=== PATIENT | female | born 1940 | race Two or more races ===

== ENCOUNTER 2017-06-23 11:14 | Outpatient (CLI) | payer OTHER | END 2017-06-23 11:21 | disposition home or self-care (01) | LOC: LAB 11:14 | DX: Z86.010 Personal history of colon polyps (principal) ==

== ENCOUNTER 2022-02-22 07:18 | Outpatient (CLI) | payer OTHER | END 2022-02-22 07:21 | disposition home or self-care (01) | LOC: NUCLEAR 07:18 | PROVIDERS: ATTEND Internal Medicine Cardiovascular Disease | DX: I10 Essential (primary) hypertension (principal) | CPT/HCPCS: 78452; 93017; A9500; J1250 ==

== ENCOUNTER 2022-10-20 06:00 | Day surgery (SDC) | payer OTHER | END 2022-10-20 11:20 | disposition home or self-care (01) | LOC: AMB-ENDOS 06:00 | PROVIDERS: ATTEND Internal Medicine Gastroenterology | DX: K63.5 Polyp of colon (principal); R19.5 Other fecal abnormalities; R19.7 Diarrhea, unspecified; Z20.822 Contact with and (suspected) exposure to COVID-19; K64.8 Other hemorrhoids; Z88.0 Allergy status to penicillin ==

== ENCOUNTER 2023-12-13 13:09 | Inpatient (IN) | payer OTHER ==
[~2023-12-13] VITALS: Ht 152.4 cm; Wt 99.8 kg
[2023-12-13] MEDS ORDERED: LEVOTHYROXINE100 MCG PO (13:23)
[2023-12-13] MEDS ORDERED: DOXAZOSIN MESYLA4 MG PO (13:23)
[2023-12-13] MEDS ORDERED: RESTORIL30 MG PO (13:23)
[2023-12-13] MEDS ORDERED: CANDESARTAN CIL32 MG PO (13:23)
[2023-12-13] MEDS ORDERED: PANTOPRAZOLE SO40 MG PO (13:24)
[2023-12-13] MEDS ORDERED: HYDROXYCHLOROQ200 MG PO (13:24)
[2023-12-13] MEDS ORDERED: METOPROLOL SUC200 MG PO (13:24)
[2023-12-13] MEDS ORDERED: PREVALITE PACKET4 GM PO (13:25)
[2023-12-13] MEDS ORDERED: levoFLOXacin IN DEXTROSE 5 % 500MG/100ML PIGGYBAG IV STA (14:02)
[2023-12-13] MEDS ORDERED: LEVALBUTEROL HCL 1.25 MG/3 ML SOLUTION IH SCH (14:05)
[2023-12-13] MEDS ORDERED: METHYLPREDNISOLONE SOD SUCC 125 MG VIAL IV STA (14:05)
[2023-12-13] MEDS ORDERED: HYDROCODONE/CHLORPHEN P-STIREX 5 ML ML PO STA (14:13)
[2023-12-13] MEDS ORDERED: MAGNESIUM SULFATE IN WATER 50 ML IV NR (14:15)
[2023-12-13] MEDS ORDERED: MAGNESIUM SULFATE 50% 1,000 MG/2 ML VIAL ONE (14:20)
[2023-12-13] MEDS ORDERED: levoFLOXacin IN DEXTROSE 5 % 500MG/100ML PIGGYBAG IV ONE (14:20)
[2023-12-13] MEDS ORDERED: METHYLPREDNISOLONE SOD SUCC 125 MG VIAL ONE (14:20)
[2023-12-13 15:20] LABS: HEMATOCRIT 31.8 % (36.0-45.00); HEMOGLOBIN 10.5 g/dL (12.0-15.00); MEAN CELL VOLUME 90.2 fL (80.00-100.00); MEAN CORPUSCULAR HEMOGLOBIN 29.8 pg (27.00-32.0); MEAN CORPUSCULAR HGB CONC 33.1 g/dl (32.0-36.0); PLATELET COUNT 210 K/uL (150-450); RED BLOOD COUNT 3.52 M/uL (4.00-6.00)
[2023-12-13 15:55] LABS: ALBUMIN 2.7 gm/dL (3.4-5.0); ALKALINE PHOSPHATASE 54 U/L (50-136); ALT/SGPT 12 U/L (12-78); ANION GAP 9 (10.0-20.0); AST/SGOT 6 U/L (15-37); BILIRUBIN TOTAL 0.23 mg/dL (0.3-1.2); BILIRUBIN,CONJUGATED < 0.10 mg/dL (0.0-0.2); BILIRUBIN,UNCONJUGATED 0.13 mg/dL (0.0-0.6); BLOOD UREA NITROGEN 31 mg/dL (7-18); BUN CREA RATIO 22 (7.0-25.0); CALCIUM 8.8 mg/dL (8.5-10.1); CARBON DIOXIDE 27 mEq/L (21-32); CHLORIDE 115 mmol/L (98-107); CREATININE SERUM 1.38 mg/dL (0.55-1.02); GFR 36.69; GLUCOSE FASTING 90 mg/dL (65-100); OSMOLALITY SERUM 297 MOSM/KG (275-295); SODIUM 146 mmol/L (136-145); TOTAL PROTEIN 6.4 gm/dL (6.4-8.2)
[2023-12-13] MEDS ORDERED: IPRATROPIUM BROMIDE 0.5 MG/2.5 ML AMPUL.NEB IH SCH (18:08)
[2023-12-13] MEDS ORDERED: SODIUM CHLORIDE 0.45 % 1,000 ML IV SCH (18:15)
[2023-12-13] MEDS ORDERED: ONDANSETRON HCL 4 MG in 0.9 % SODIUM CHLORIDE 50 ML IV PRN (18:15)
[2023-12-13 18:32] LABS: ABG PH 7.359 (7.35-7.45); ABG PO2 73.6 mmHg (80-100); ABG pCO2 42.1 mmHg (35-45); BASE EXCESS -2.2 mmol/l; SaO2 93.8 %
[2023-12-13 18:33] LABS: BICARBONATE 23.2 mmol/l (23-25); Tco2 24.5 mmol/l
[2023-12-13 18:35] LABS: allen test SATISFACTORY; o2 21 %; puncture site RADIAL RIGHT
[2023-12-13 19:14] VITALS: BP 142/61; O2SAT 96
[2023-12-13 19:16] LABS: URINE APPEARANCE Clear; URINE BILIRRUBIN Negative (NEGATIVE); URINE BLOOD Negative; URINE COLOR Yellow; URINE GLUCOSE Negative (NEGATIVE); URINE KETONE Negative (NEGATIVE); URINE LEUKOCYTE Negative; URINE NITRATE Positive; URINE PROTEIN Negative (NEGATIVE); URINE UROBILINOGEN 0.2 E.U./dl
[2023-12-13 19:21] LABS: URINE BACTERIA 5812.3 uL (0.0-1933)
[2023-12-13 19:34] LABS: URINE CAST 0.15 uL (0.0-1.40); URINE EPITHELIAL CELLS 0.4 uL (0.0-38.8); URINE RBC 1.9 uL (0.0-20.8); URINE WBC 1.5 uL (0.0-23.2)
[2023-12-13 19:38] LABS: MAGNESIUM 1.9 mg/dL (1.8-2.4); PHOSPHOROUS 3.6 mg/dL (2.5-4.9)
[2023-12-13 19:39] LABS: INR 1.11; PARTIAL THROMBOPLASTIN TIME 29.2 SECONDS (22.0-34.0); PROTHROMBIN TIME 11.6 SECONDS (9.0-11.5)
[2023-12-13] MEDS ORDERED: LEVALBUTEROL HCL 0.63 MG/3 ML SOLUTION IH ONE ×2 (21:00→23:42)
[2023-12-13] MEDS ORDERED: TEMAZEPAM 15 MG CAPSULE PO SCH (21:00)
[2023-12-13] MEDS ORDERED: IPRATROPIUM BROMIDE 0.5 MG/2.5 ML AMPUL.NEB IH ONE ×2 (21:00→23:41)
[2023-12-14 00:14] VITALS: BP 135/79; O2SAT 97
[2023-12-14] MEDS ORDERED: DOXAZOSIN MESYLATE 4 MG TABLET PO SCH ×2 (00:17→21:00)
[2023-12-14 01:12] VITALS: BP 133/67; O2SAT 97
[2023-12-14] MEDS ORDERED: LEVOTHYROXINE SODIUM 100 MCG TABLET PO SCH (06:00)
[2023-12-14] MEDS ORDERED: CANDESARTAN CILEXETIL 32 MG TABLET PO SCH (09:00)
[2023-12-14] MEDS ORDERED: ALLOPURINOL 100 MG TABLET PO SCH (09:00)
[2023-12-14] MEDS ORDERED: levoFLOXacin IN DEXTROSE 5 % 100 ML IV SCH (09:00)
[2023-12-14] MEDS ORDERED: FAMOTIDINE/PF 20 MG in 0.9 % SODIUM CHLORIDE 8 ML IV PUSH SCH (09:00)
[2023-12-14 09:43] VITALS: BP 124/69; O2SAT 97
[2023-12-14 16:00] VITALS: BP 158/82; O2SAT 96
[2023-12-15 01:50] VITALS: BP 148/86; O2SAT 95
[2023-12-15 09:40] VITALS: BP 115/73; O2SAT 100
[2023-12-15] MEDS ORDERED: SODIUM CHLORIDE FOR INHALATION 1 VIAL.NEB IH SCH (13:35)
[2023-12-15] MEDS ORDERED: ACETYLCYSTEINE 200 MG/ML 30ML VIAL IH SCH (17:00)
[2023-12-15] MEDS ORDERED: ALBUTEROL SULFATE 3 ML/2.5 MG AMPUL.NEB IH SCH (17:00)
[2023-12-15 17:34] VITALS: BP 121/77
[2023-12-16 02:00] VITALS: BP 125/55
[2023-12-16 08:31] LABS: ALBUMIN 2.6 gm/dL (3.4-5.0); CALCIUM 8.6 mg/dL (8.5-10.1); CREATININE SERUM 1.49 mg/dL (0.55-1.02); GFR 33.59; PHOSPHOROUS 3.1 mg/dL (2.5-4.9); POTASSIUM 4.62 mEq/L (3.5-5.1)
[2023-12-16 09:13] VITALS: BP 110/63
[2023-12-16 18:01] VITALS: BP 134/63
[2023-12-17 02:39] VITALS: BP 115/69; O2SAT 96
[2023-12-17 08:26] VITALS: BP 115/44
[2023-12-17] MEDS ORDERED: FAMOTIDINE/PF 20 MG/2 ML VIAL ONE (08:39)
[2023-12-17] MEDS ORDERED: levoFLOXacin IN DEXTROSE 5 % 100 ML IV SCH (09:00)
[2023-12-17 17:57] VITALS: BP 138/52
[2023-12-17 21:59] VITALS: BP 153/67
[2023-12-18 02:43] VITALS: BP 115/63; O2SAT 95
[2023-12-18] MEDS ORDERED: FAMOTIDINE/PF 20 MG/2 ML VIAL ONE (08:21)
[2023-12-18 08:29] LABS: HEMATOCRIT 29.9 % (36.0-45.00); HEMOGLOBIN 9.9 g/dL (12.0-15.00); MEAN CELL VOLUME 91.7 fL (80.00-100.00); MEAN CORPUSCULAR HEMOGLOBIN 30.3 pg (27.00-32.0); PLATELET COUNT 151 K/uL (150-450); RED BLOOD COUNT 3.26 M/uL (4.00-6.00); RED CELL DISTRIBUTION WIDTH 16.6 % (11.5-14.5)
[2023-12-18 08:48] VITALS: BP 105/50
[2023-12-18 09:24] LABS: ALBUMIN 2.6 gm/dL (3.4-5.0); BILIRUBIN TOTAL 0.5 mg/dL (0.3-1.2); CALCIUM 8.5 mg/dL (8.5-10.1); CREATININE SERUM 1.54 mg/dL (0.55-1.02); GFR 32.33; GLOBULINA 2.7 G/DL (2.4-3.5); PHOSPHOROUS 2.8 mg/dL (2.5-4.9); POTASSIUM 4.54 mEq/L (3.5-5.1); TOTAL PROTEIN 5.3 gm/dL (6.4-8.2)
[2023-12-18 18:19] VITALS: BP 152/51
[2023-12-18] MEDS ORDERED: CLOTRIMAZOLE 10 MG TROCHE MM SCH (21:00)
[2023-12-19] MEDS ORDERED: LEVALBUTEROL HCL 1.25 MG/3 ML SOLUTION IH SCH
[2023-12-19] MEDS ORDERED: ACETYLCYSTEINE 2,000 MG/10 ML ML IH SCH
[2023-12-19 01:51] VITALS: BP 138/89
[2023-12-19 07:47] LABS: HEMATOCRIT 30.1 % (36.0-45.00); HEMOGLOBIN 9.9 g/dL (12.0-15.00); MEAN CELL VOLUME 90.1 fL (80.00-100.00); MEAN CORPUSCULAR HEMOGLOBIN 29.7 pg (27.00-32.0); MEAN CORPUSCULAR HGB CONC 32.9 g/dl (32.0-36.0); PLATELET COUNT 141 K/uL (150-450); RED BLOOD COUNT 3.34 M/uL (4.00-6.00); RED CELL DISTRIBUTION WIDTH 16.7 % (11.5-14.5)
[2023-12-19] MEDS ORDERED: ACETYLCYSTEINE 200 MG/ML 30ML VIAL IH SCH (08:00)
[2023-12-19 08:25] LABS: CALCIUM 8.3 mg/dL (8.5-10.1); CREATININE SERUM 1.62 mg/dL (0.55-1.02); GFR 30.5; POTASSIUM 4.71 mEq/L (3.5-5.1)
[2023-12-19 08:45] VITALS: BP 130/60
[2023-12-19 18:04] VITALS: BP 134/73; O2SAT 98
[2023-12-20 03:15] VITALS: BP 114/56
[2023-12-20 08:47] VITALS: BP 152/71
[2023-12-20 18:37] VITALS: BP 129/74; O2SAT 97
[2023-12-20] MEDS ORDERED: METHYLPREDNISOLONE SOD SUCC 40 MG VIAL IV SCH (21:00)
[2023-12-21 01:25] VITALS: BP 134/78
[2023-12-21 08:52] LABS: MEAN CELL VOLUME 91.7 fL (80.00-100.00); MEAN CORPUSCULAR HEMOGLOBIN 30.4 pg (27.00-32.0); MEAN CORPUSCULAR HGB CONC 33.2 g/dl (32.0-36.0); PLATELET COUNT 131 K/uL (150-450); RED BLOOD COUNT 3.28 M/uL (4.00-6.00); RED CELL DISTRIBUTION WIDTH 17.6 % (11.5-14.5)
[2023-12-21 09:10] VITALS: BP 135/72
[2023-12-21 09:46] LABS: CALCIUM 8.5 mg/dL (8.5-10.1); CREATININE SERUM 1.53 mg/dL (0.55-1.02); GFR 32.57; POTASSIUM 5.87 mEq/L (3.5-5.1)
[2023-12-21] MEDS ORDERED: SODIUM POLYSTYRENE SULFONATE 15 G/4 TSP TSP PO SCH (17:00)
[2023-12-21 17:55] VITALS: BP 136/69; O2SAT 98
[2023-12-21] MEDS ORDERED: TEMAZEPAM 15 MG CAPSULE PO SCH (21:00)
[2023-12-22 01:42] VITALS: BP 107/67
[2023-12-22 08:57] VITALS: BP 129/77
[2023-12-22] MEDS ORDERED: levoFLOXacin 750 MG TABLET PO SCH (11:00)
[2023-12-22] MEDS ORDERED: hydrALAZINE HCL 20 MG VIAL IV PRN (11:45)
[2023-12-22] MEDS ORDERED: LEVALBUTEROL HCL 1.25 MG/3 ML SOLUTION IH SCH (12:00)
[2023-12-22] MEDS ORDERED: METHYLPREDNISOLONE SOD SUCC 40 MG VIAL IV SCH (13:00)
[2023-12-22] MEDS ORDERED: METROnidazole 500 MG TABLET PO SCH (13:00)
[2023-12-22] MEDS ORDERED: AMLODIPINE BESYLATE 5 MG TABLET PO SCH (17:00)
[2023-12-22] MEDS ORDERED: DOXAZOSIN MESYLATE 4 MG TABLET PO SCH (17:00)
[2023-12-22 17:34] VITALS: BP 114/67; O2SAT 97
[2023-12-23 02:47] VITALS: BP 109/64; O2SAT 93
[2023-12-23 07:59] LABS: CREATININE SERUM 1.46 mg/dL (0.55-1.02); GFR 34.38; POTASSIUM 5.07 mEq/L (3.5-5.1)
[2023-12-23 09:15] VITALS: BP 126/74
[2023-12-23] MEDS ORDERED: DEXTROSE 5 %-0.45 % SOD CHLORD 1,000 ML IV SCH (11:30)
[2023-12-23 17:39] VITALS: BP 159/61
[2023-12-24 02:57] VITALS: BP 121/69; O2SAT 93
[2023-12-24] MEDS ORDERED: ENOXAPARIN SODIUM 40 MG/0.4 ML SYRINGE SUBCUTANEO SCH (09:00)
[2023-12-24 09:12] VITALS: BP 131/57; O2SAT 100
[2023-12-24 09:18] LABS: ALBUMIN 2.6 gm/dL (3.4-5.0); BILIRUBIN TOTAL 0.27 mg/dL (0.3-1.2); CALCIUM 7.8 mg/dL (8.5-10.1); CREATININE SERUM 1.35 mg/dL (0.55-1.02); GFR 37.64; GLOBULINA 2.4 G/DL (2.4-3.5); POTASSIUM 4.28 mEq/L (3.5-5.1)
[2023-12-24] MEDS ORDERED: MAGNESIUM SULFATE IN WATER 2 GM/50 ML PIGGYBAG IV NR (10:30)
[2023-12-24] MEDS ORDERED: POTASSIUM PHOS,M-BASIC-D-BASIC 3 MM/ML VIAL IV ONE (12:00)
[2023-12-24 17:35] VITALS: BP 121/57
[2023-12-24] MEDS ORDERED: KETOROLAC TROMETHAMINE 30 MG VIAL IM ONE (18:15)
[2023-12-25 02:54] VITALS: BP 114/69; O2SAT 95
[2023-12-25 08:57] LABS: ALBUMIN 2.8 gm/dL (3.4-5.0); BILIRUBIN TOTAL 0.31 mg/dL (0.3-1.2); CALCIUM 8.1 mg/dL (8.5-10.1); CREATININE SERUM 1.62 mg/dL (0.55-1.02); GFR 30.5; GLOBULINA 2.5 G/DL (2.4-3.5); MAGNESIUM 1.6 mg/dL (1.8-2.4); PHOSPHOROUS 3.1 mg/dL (2.5-4.9); POTASSIUM 4.52 mEq/L (3.5-5.1); TOTAL PROTEIN 5.3 gm/dL (6.4-8.2)
[2023-12-25 09:45] VITALS: BP 107/64; O2SAT 98
[2023-12-25 17:19] VITALS: BP 115/50
[2023-12-26] VITALS: BP 116/65
[2023-12-26 09:28] VITALS: BP 103/62; O2SAT 97
[2023-12-26 16:00] VITALS: BP 128/71; O2SAT 99
[2023-12-27 03:07] VITALS: BP 113/62; O2SAT 96
[2023-12-27 09:22] VITALS: BP 115/74; O2SAT 96
[2023-12-27] MEDS ORDERED: TRAMADOL HCL 50 MG TABLET PO SCH (12:06)
[2023-12-27] MEDS ORDERED: FUROsemide 20 MG/2 ML VIAL IV SCH (13:30)
[2023-12-27] MEDS ORDERED: ACETAMINOPHEN 500 MG GEL..CAP PO PRN (19:30)
[2023-12-27 19:33] VITALS: BP 100/36
[2023-12-28] MEDS ORDERED: MEROPENEM 500 MG/VIAL VIAL IV SCH (02:15)
[2023-12-28 03:06] VITALS: BP 123/50
[2023-12-28 10:03] VITALS: BP 123/50
[2023-12-28 10:19] LABS: ALBUMIN 2.4 gm/dL (3.4-5.0); BILIRUBIN TOTAL 0.39 mg/dL (0.3-1.2); CALCIUM 8.2 mg/dL (8.5-10.1); CREATININE SERUM 1.69 mg/dL (0.55-1.02); GFR 29.04; POTASSIUM 4.7 mEq/L (3.5-5.1); TOTAL PROTEIN 4.4 gm/dL (6.4-8.2)
[2023-12-28] MEDS ORDERED: LIDOCAINE HCL 4% Topic SOLUTION TOP ONE (12:15)
[2023-12-28] MEDS ORDERED: LIDOCAINE HCL 2% JELLY 6 ML SYRINGE MM ONE (12:15)
[2023-12-28] MEDS ORDERED: SUGAMMADEX SODIUM 200 MG/2 ML VIAL IV ONE (12:30)
[2023-12-28 14:20] VITALS: O2SAT 100
[2023-12-28 15:07] VITALS: BP 104/45; O2SAT 100
[2023-12-28] MEDS ORDERED: PANTOPRAZOLE SODIUM 40 MG/VIAL VIAL IV STA (16:23)
[2023-12-28] MEDS ORDERED: MENTHOL/CETYLPYRD CL 1 LOZENGE MM PRN (16:30)
[2023-12-28] MEDS ORDERED: FUROsemide 20 MG/2 ML VIAL IV SCH (17:00)
[2023-12-28] MEDS ORDERED: METHYLPREDNISOLONE SOD SUCC 125 MG VIAL IV SCH (17:00)
[2023-12-28] MEDS ORDERED: LEVALBUTEROL HCL 1.25 MG/3 ML SOLUTION IH SCH (18:00)
[2023-12-28 20:00] VITALS: BP 135/61; O2SAT 100
[2023-12-28] MEDS ORDERED: FAMOTIDINE/PF 20 MG in 0.9 % SODIUM CHLORIDE 100 ML IV SCH (21:00)
[2023-12-28 23:30] VITALS: BP 138/63; O2SAT 100
[2023-12-29 04:00] VITALS: BP 125/49; O2SAT 100
[2023-12-29] MEDS ORDERED: MEROPENEM 1,000 MG VIAL IV SCH ×2 (07:26→21:00)
[2023-12-29 07:36] VITALS: BP 112/50; O2SAT 99
[2023-12-29] MEDS ORDERED: ENOXAPARIN SODIUM 30 MG/0.3 ML SYRINGE SUBCUTANEO SCH (09:00)
[2023-12-29] MEDS ORDERED: PANTOPRAZOLE SODIUM 40 MG/VIAL VIAL IV SCH (09:00)
[2023-12-29 12:00] VITALS: BP 136/57; O2SAT 98
[2023-12-29] MEDS ORDERED: CHLORHEXIDINE GLUCONATE 120 ML BOTTLE TOP ONE (12:20)
[2023-12-29 15:34] VITALS: BP 131/51; O2SAT 100
[2023-12-29 18:44] VITALS: BP 149/70; O2SAT 97
[2023-12-29] MEDS ORDERED: FAMOTIDINE/PF 20 MG/2 ML VIAL ONE (20:22)
[2023-12-29 20:35] VITALS: BP 146/88
[2023-12-29] MEDS ORDERED: TEMAZEPAM 15 MG CAPSULE PO SCH (21:00)
[2023-12-30 01:09] VITALS: BP 113/60; O2SAT 95
[2023-12-30] MEDS ORDERED: LEVOTHYROXINE SODIUM 100 MCG TABLET PO SCH (06:00)
[2023-12-30 07:04] VITALS: BP 96/50; O2SAT 97
[2023-12-30 08:00] VITALS: BP 128/60
[2023-12-30 08:24] LABS: HEMATOCRIT 28.4 % (36.0-45.00); HEMOGLOBIN 9.6 g/dL (12.0-15.00); MEAN CELL VOLUME 90.2 fL (80.00-100.00); MEAN CORPUSCULAR HEMOGLOBIN 30.6 pg (27.00-32.0); MEAN CORPUSCULAR HGB CONC 33.9 g/dl (32.0-36.0); RED BLOOD COUNT 3.14 M/uL (4.00-6.00); RED CELL DISTRIBUTION WIDTH 18.4 % (11.5-14.5)
[2023-12-30 08:29] LABS: PLATELET COUNT 107 K/uL (150-450)
[2023-12-30 08:37] LABS: ALBUMIN 2.4 gm/dL (3.4-5.0); BILIRUBIN TOTAL 0.26 mg/dL (0.3-1.2); CALCIUM 7.9 mg/dL (8.5-10.1); CREATININE SERUM 1.48 mg/dL (0.55-1.02); GFR 33.85; GLOBULINA 2.2 G/DL (2.4-3.5); POTASSIUM 5.06 mEq/L (3.5-5.1); TOTAL PROTEIN 4.6 gm/dL (6.4-8.2)
[2023-12-31 01:31] VITALS: BP 133/62; O2SAT 97
[2023-12-31 05:57] VITALS: BP 136/74; O2SAT 97
[2023-12-31 08:26] VITALS: BP 146/80
[2023-12-31] MEDS ORDERED: METHYLPREDNISOLONE SOD SUCC 40 MG VIAL IV SCH (17:00)
[2023-12-31 17:55] VITALS: BP 145/72; O2SAT 97
[2024-01-01 01:35] VITALS: BP 149/64; O2SAT 96
[2024-01-01 05:58] VITALS: BP 145/67; O2SAT 97
[2024-01-01 08:48] VITALS: BP 160/75
[2024-01-01] MEDS ORDERED: FLUCONAZOLE IN NACL,ISO-OSM 200 ML IV NR (10:45)
[2024-01-01 17:48] VITALS: BP 145/62
[2024-01-01] MEDS ORDERED: FAMOtidine 20 MG TABLET PO SCH (21:00)
[2024-01-01 21:33] VITALS: BP 167/78
[2024-01-02 02:56] VITALS: BP 112/68; O2SAT 93
[2024-01-02 08:58] VITALS: BP 158/84; O2SAT 96
[2024-01-02] MEDS ORDERED: PANTOPRAZOLE SODIUM 40 MG TABLET.DR PO SCH (09:00)
[2024-01-02] MEDS ORDERED: FLUCONAZOLE IN NACL,ISO-OSM 100 ML IV SCH (09:00)
[2024-01-02 17:00] LABS: HEMATOCRIT 31.6 % (36.0-45.00); HEMOGLOBIN 10.4 g/dL (12.0-15.00); MEAN CELL VOLUME 91.6 fL (80.00-100.00); MEAN CORPUSCULAR HEMOGLOBIN 30.2 pg (27.00-32.0); RED BLOOD COUNT 3.44 M/uL (4.00-6.00); RED CELL DISTRIBUTION WIDTH 18.3 % (11.5-14.5)
[2024-01-02] MEDS ORDERED: METHYLPREDNISOLONE SOD SUCC 40 MG VIAL IV SCH (17:00)
[2024-01-02 17:03] LABS: PLATELET COUNT 94 K/uL (150-450)
[2024-01-02 17:04] LABS: PLT IN CITRATE 86 K/uL (150-450)
[2024-01-02 17:22] LABS: CALCIUM 8.3 mg/dL (8.5-10.1); CREATININE SERUM 1.07 mg/dL (0.55-1.02); GFR 49.22; MAGNESIUM 1.6 mg/dL (1.8-2.4); PHOSPHOROUS 2.1 mg/dL (2.5-4.9); POTASSIUM 4.79 mEq/L (3.5-5.1)
[2024-01-02 17:48] VITALS: BP 152/63
[2024-01-02] MEDS ORDERED: BUMETANIDE 2.5 MG/10 ML VIAL IV SCH (21:00)
[2024-01-03 01:05] VITALS: BP 131/62
[2024-01-03] MEDS ORDERED: AMINO ACIDS 1 EACH TABLET PO SCH (09:00)
[2024-01-03] MEDS ORDERED: FLUCONAZOLE 200 MG TABLET PO SCH (09:00)
[2024-01-03 09:26] VITALS: BP 150/69
[2024-01-03] MEDS ORDERED: METOPROLOL SUCCINATE 50 MG TAB.SR.24H PO SCH (17:00)
[2024-01-03] MEDS ORDERED: IPRATROPIUM BROMIDE 0.5 MG/2.5 ML AMPUL.NEB IH SCH (17:00)
[2024-01-03] MEDS ORDERED: DOXAZOSIN MESYLATE 4 MG TABLET PO SCH (17:00)
[2024-01-03] MEDS ORDERED: HYDROXYCHLOROQUINE SULFATE 200 MG TABLET PO SCH (17:00)
[2024-01-03] MEDS ORDERED: PREDNISONE 20 MG TABLET PO SCH (17:02)
[2024-01-03 17:39] VITALS: BP 149/66
[2024-01-03] MEDS ORDERED: MAGNESIUM SULFATE IN WATER 50 ML IV SCH (18:00)
[2024-01-03 18:08] LABS: ABG PH 7.427 (7.35-7.45); ABG PO2 76.8 mmHg (80-100); ABG pCO2 41.5 mmHg (35-45); BASE EXCESS 2.2 mmol/l; BICARBONATE 26.8 mmol/l (23-25); SaO2 95.6 %
[2024-01-03 18:15] LABS: allen test SATISFACTORY; o2 21 %; puncture site RADIAL LEFT
[2024-01-03] MEDS ORDERED: POTASSIUM PHOS,M-BASIC-D-BASIC 18 MM in 0.9 % SODIUM CHLORIDE 250 ML IV SCH (20:00)
[2024-01-03] MEDS ORDERED: BUDESONIDE 0.5 MG/2 ML AMPUL.NEB IH SCH (21:00)
[2024-01-03 22:16] VITALS: BP 161/67
[2024-01-04 00:57] VITALS: BP 134/58
[2024-01-04 09:11] VITALS: BP 154/62
[2024-01-04 11:13] LABS: HEMATOCRIT 32.5 % (36.0-45.00); HEMOGLOBIN 10.6 g/dL (12.0-15.00); MEAN CELL VOLUME 91.9 fL (80.00-100.00); MEAN CORPUSCULAR HEMOGLOBIN 30.1 pg (27.00-32.0); MEAN CORPUSCULAR HGB CONC 32.7 g/dl (32.0-36.0); PLATELET COUNT 99 K/uL (150-450); RED BLOOD COUNT 3.53 M/uL (4.00-6.00); RED CELL DISTRIBUTION WIDTH 18.3 % (11.5-14.5)
[2024-01-04 12:03] LABS: ALBUMIN 2.5 gm/dL (3.4-5.0); BILIRUBIN TOTAL 0.36 mg/dL (0.3-1.2); CALCIUM 8.4 mg/dL (8.5-10.1); CREATININE SERUM 1.09 mg/dL (0.55-1.02); GFR 48.17; GLOBULINA 2.1 G/DL (2.4-3.5); POTASSIUM 5.83 mEq/L (3.5-5.1); TOTAL PROTEIN 4.6 gm/dL (6.4-8.2)
[2024-01-04] MEDS ORDERED: MEROPENEM 500 MG/VIAL VIAL IV SCH (17:00)
[2024-01-04 17:27] VITALS: BP 145/67
[2024-01-05] VITALS: BP 134/77
[2024-01-05 08:56] VITALS: BP 116/61
[2024-01-05] MEDS ORDERED: SODIUM POLYSTYRENE SULFONATE 15 G/4 TSP TSP PO SCH (17:00)
[2024-01-05 17:13] VITALS: BP 125/69
[2024-01-05] MEDS ORDERED: BUMETANIDE 2.5 MG/10 ML VIAL IV SCH (21:00)
[2024-01-05] MEDS ORDERED: TEMAZEPAM 15 MG CAPSULE PO STA (22:10)
[2024-01-05] MEDS ORDERED: ACETAMINOPHEN 500 MG GEL..CAP PO PRN (22:15)
[2024-01-06 02:29] VITALS: BP 140/56
[2024-01-06 07:35] LABS: ALBUMIN 2.2 gm/dL (3.4-5.0); CALCIUM 8.2 mg/dL (8.5-10.1); CREATININE SERUM 1.22 mg/dL (0.55-1.02); GFR 42.3; PHOSPHOROUS 4.4 mg/dL (2.5-4.9)
[2024-01-06 08:00] VITALS: BP 122/67
[2024-01-06 08:51] LABS: POTASSIUM 6.32 mEq/L (3.5-5.1)
[2024-01-06] MEDS ORDERED: SODIUM POLYSTYRENE SULFONATE 15 G/4 TSP TSP PO SCH (13:00)
[2024-01-06 17:11] VITALS: BP 151/71; O2SAT 100
[2024-01-06 20:52] VITALS: BP 150/60; O2SAT 98
[2024-01-06] MEDS ORDERED: TEMAZEPAM 15 MG CAPSULE PO SCH (21:00)
[2024-01-07 02:13] VITALS: BP 106/64; O2SAT 96
[2024-01-07] MEDS ORDERED: NA PHOS,M-B/NA PHOS,DI-BA 1 BOTTLE ENEMA RECTAL NR (08:45)
[2024-01-07 08:50] LABS: CALCIUM 8.1 mg/dL (8.5-10.1); CREATININE SERUM 1.25 mg/dL (0.55-1.02); GFR 41.13; POTASSIUM 5.39 mEq/L (3.5-5.1)
[2024-01-07 08:52] VITALS: BP 135/75; O2SAT 98
[2024-01-07 18:29] VITALS: BP 130/70; O2SAT 97
[2024-01-07] MEDS ORDERED: TEMAZEPAM 15 MG CAPSULE PO SCH (21:00)
[2024-01-07 23:02] VITALS: BP 150/60; O2SAT 98
[2024-01-08] VITALS: BP 109/59; O2SAT 100
[2024-01-08 09:11] VITALS: BP 130/73
[2024-01-08 11:25] LABS: HEMATOCRIT 30.9 % (36.0-45.00); HEMOGLOBIN 10.4 g/dL (12.0-15.00); MEAN CELL VOLUME 91.6 fL (80.00-100.00); MEAN CORPUSCULAR HEMOGLOBIN 30.8 pg (27.00-32.0); MEAN CORPUSCULAR HGB CONC 33.7 g/dl (32.0-36.0); RED BLOOD COUNT 3.38 M/uL (4.00-6.00); RED CELL DISTRIBUTION WIDTH 17.9 % (11.5-14.5)
[2024-01-08 11:27] LABS: PLATELET COUNT 99 K/uL (150-450)
[2024-01-08 16:53] VITALS: BP 152/74
[2024-01-08] MEDS ORDERED: PREDNISONE 20 MG TABLET PO SCH (17:00)
[2024-01-08] MEDS ORDERED: SODIUM ZIRCONIUM CYCLOSILICATE PO SCH (17:00)
[2024-01-08 17:10] LABS: Glycopro Negative (Negative); HL Negative (Negative); la Positive (Negative); lb Negative (Negative); llb Negative (Negative)
[2024-01-09 01:39] VITALS: BP 148/71; O2SAT 98
[2024-01-09 05:14] VITALS: BP 154/63; O2SAT 97
[2024-01-09 08:20] LABS: ALBUMIN 2.2 gm/dL (3.4-5.0); BILIRUBIN TOTAL 0.39 mg/dL (0.3-1.2); CALCIUM 8.3 mg/dL (8.5-10.1); CREATININE SERUM 0.97 mg/dL (0.55-1.02); GFR 55.12; GLOBULINA 2.2 G/DL (2.4-3.5); POTASSIUM 4.13 mEq/L (3.5-5.1); TOTAL PROTEIN 4.4 gm/dL (6.4-8.2)
[2024-01-09 08:46] VITALS: BP 145/72
[2024-01-09] MEDS ORDERED: HYDROCORTISONE 2.5% 30 GM TUBE RECTAL SCH (09:00)
[2024-01-09] MEDS ORDERED: SODIUM CHLORIDE 0.45 % 1,000 ML IV SCH (15:45)
[2024-01-09] MEDS ORDERED: PREDNISONE 10 MG TABLET PO SCH (17:00)
[2024-01-09 17:14] VITALS: BP 128/71; O2SAT 97
[2024-01-09] MEDS ORDERED: MEROPENEM 500 MG/VIAL VIAL IV SCH (18:00)
[2024-01-09] MEDS ORDERED: ACETYLCYSTEINE 2,000 MG/10 ML ML PO SCH (21:00)
[2024-01-10 02:46] VITALS: BP 134/61
[2024-01-10] MEDS ORDERED: HYDROCORTISONE ACETATE 25 MG/SUPP.RECT SUPP.RECT RECTAL SCH (09:00)
[2024-01-10 09:19] VITALS: BP 147/80; O2SAT 95
[2024-01-10 18:59] VITALS: BP 166/69
[2024-01-11 02:53] VITALS: BP 120/74
[2024-01-11 09:45] VITALS: BP 150/67
[2024-01-11 18:55] VITALS: BP 120/57
[2024-01-11] MEDS ORDERED: LACTOBACILLUS ACIDOPHILUS 1 CAP CAP PO SCH (20:54)
[2024-01-11] MEDS ORDERED: LOPERAMIDE HCL 2 MG CAPSULE PO SCH (20:54)
[2024-01-11] MEDS ORDERED: TRAMADOL HCL 50 MG TABLET PO PRN (21:00)
[2024-01-12 02:08] VITALS: BP 106/54
[2024-01-12 05:48] LABS: CALCIUM 7.7 mg/dL (8.5-10.1); CREATININE SERUM 0.82 mg/dL (0.55-1.02); GFR 66.91; POTASSIUM 4.72 mEq/L (3.5-5.1)
[2024-01-12 05:52] LABS: HEMATOCRIT 26.9 % (36.0-45.00); MEAN CELL VOLUME 92.3 fL (80.00-100.00); MEAN CORPUSCULAR HGB CONC 33.4 g/dl (32.0-36.0); RED BLOOD COUNT 2.91 M/uL (4.00-6.00)
[2024-01-12 05:53] LABS: MEAN CORPUSCULAR HEMOGLOBIN 30.9 pg (27.00-32.0); PLATELET COUNT 63 K/uL (150-450)
[2024-01-12 07:59] VITALS: BP 108/59; O2SAT 96
[2024-01-12] MEDS ORDERED: PREDNISONE 20 MG TABLET PO SCH (09:00)
[2024-01-12] MEDS ORDERED: fentaNYL CITRATE 50 MCG/ML AMPUL IV PUSH NR (15:45)
[2024-01-12] MEDS ORDERED: MIDAZOLAM HCL 2 MG/2 ML VIAL IV PUSH NR (15:45)
[2024-01-12 17:47] VITALS: BP 147/80; O2SAT 100
[2024-01-12] MEDS ORDERED: KETOROLAC TROMETHAMINE 30 MG VIAL IV PRN (18:15)
[2024-01-13 01:48] VITALS: BP 166/90
[2024-01-13] MEDS ORDERED: levoFLOXacin IN DEXTROSE 5 % 5 MG/ML PIGGYBAG IV SCH (09:00)
[2024-01-13 09:58] VITALS: BP 131/62
[2024-01-13] MEDS ORDERED: SODIUM CHLORIDE 0.45 % 1,000 ML IV SCH (16:30)
[2024-01-13] MEDS ORDERED: AMINO ACIDS/PROTEIN HYDROLYS 30 ML BLIST.PACK PO SCH (17:00)
[2024-01-13] MEDS ORDERED: ENOXAPARIN SODIUM 60 MG/0.6 ML SYRINGE SUBCUTANEO SCH (17:00)
[2024-01-13 18:30] VITALS: BP 121/43
[2024-01-13 20:20] VITALS: BP 113/44
[2024-01-14 02:07] VITALS: BP 137/59; O2SAT 100
[2024-01-14 08:25] LABS: HEMATOCRIT 25.1 % (36.0-45.00); MEAN CELL VOLUME 91.6 fL (80.00-100.00); MEAN CORPUSCULAR HGB CONC 33.7 g/dl (32.0-36.0); RED BLOOD COUNT 2.74 M/uL (4.00-6.00); RED CELL DISTRIBUTION WIDTH 17.6 % (11.5-14.5)
[2024-01-14 08:38] LABS: HEMOGLOBIN 8.5 g/dL (12.0-15.00); PLATELET COUNT 70 K/uL (150-450)
[2024-01-14 08:40] LABS: CALCIUM 7.8 mg/dL (8.5-10.1); CREATININE SERUM 1.09 mg/dL (0.55-1.02); GFR 48.17; MAGNESIUM 1.5 mg/dL (1.8-2.4); PHOSPHOROUS 2.6 mg/dL (2.5-4.9); POTASSIUM 5.42 mEq/L (3.5-5.1)
[2024-01-14 09:30] VITALS: BP 166/90
[2024-01-14] MEDS ORDERED: SODIUM POLYSTYRENE SULFONATE 30G/8 TSP PO SCH (13:26)
[2024-01-14] MEDS ORDERED: MAGNESIUM SULFATE IN WATER 50 ML IV SCH (14:00)
[2024-01-14] MEDS ORDERED: SODIUM POLYSTYRENE SULFONATE 15 G/4 TSP TSP PO SCH (14:30)
[2024-01-14] MEDS ORDERED: KETOROLAC TROMETHAMINE 30 MG VIAL IV PRN (15:15)
[2024-01-14] MEDS ORDERED: MORPHINE SULFATE 2 MG/ML CARTRIDGE IV PRN (15:15)
[2024-01-14 18:22] VITALS: BP 112/68
[2024-01-15 03:26] VITALS: BP 90/56; O2SAT 96
[2024-01-15 09:23] VITALS: BP 142/60; O2SAT 98
[2024-01-15 18:02] VITALS: BP 146/70; O2SAT 100
[2024-01-15] MEDS ORDERED: HYDROCORTISONE ACETATE 25 MG/SUPP.RECT SUPP.RECT RECTAL SCH (19:11)
[2024-01-15] MEDS ORDERED: TEMAZEPAM 15 MG CAPSULE PO SCH (21:15)
[2024-01-15 22:42] VITALS: BP 151/75; O2SAT 98
[2024-01-16 02:08] VITALS: BP 126/76
[2024-01-16] MEDS ORDERED: HYDROCORTISONE 2.5% 30 GM TUBE RECTAL SCH (09:00)
[2024-01-16 09:29] VITALS: BP 137/73; O2SAT 100
[2024-01-16 18:27] VITALS: BP 139/78; O2SAT 99
[2024-01-17 02:27] VITALS: BP 125/61; O2SAT 21
[2024-01-17] MEDS ORDERED: levoFLOXacin IN DEXTROSE 5 % 5 MG/ML PIGGYBAG IV SCH (09:00)
[2024-01-17 09:17] VITALS: BP 144/67
[2024-01-17] MEDS ORDERED: TRAMADOL HCL 50 MG TABLET PO PRN (14:30)
[2024-01-17 17:01] VITALS: BP 107/48
[2024-01-17 20:32] LABS: HEMATOCRIT 25.2 % (36.0-45.00); MEAN CELL VOLUME 92.8 fL (80.00-100.00); MEAN CORPUSCULAR HGB CONC 32.7 g/dl (32.0-36.0); RED CELL DISTRIBUTION WIDTH 17.5 % (11.5-14.5)
[2024-01-17 20:36] LABS: HEMOGLOBIN 8.3 g/dL (12.0-15.00); MEAN CORPUSCULAR HEMOGLOBIN 30.5 pg (27.00-32.0); PLATELET COUNT 84 K/uL (150-450); RED BLOOD COUNT 2.72 M/uL (4.00-6.00)
[2024-01-17 20:41] LABS: INR 1.05; PARTIAL THROMBOPLASTIN TIME 28.2 SECONDS (22.0-34.0); PROTHROMBIN TIME 11.4 SECONDS (9.0-11.5)
[2024-01-17 20:50] LABS: ALBUMIN 1.7 gm/dL (3.4-5.0); BILIRUBIN TOTAL 0.31 mg/dL (0.3-1.2); CALCIUM 7.7 mg/dL (8.5-10.1); CREATININE SERUM 1.24 mg/dL (0.55-1.02); GFR 41.51; GLOBULINA 2.3 G/DL (2.4-3.5); MAGNESIUM 1.9 mg/dL (1.8-2.4); POTASSIUM 5.7 mEq/L (3.5-5.1)
[2024-01-18 02:27] VITALS: BP 108/68; O2SAT 100
[2024-01-18 08:59] VITALS: BP 93/54; O2SAT 98
[2024-01-18] MEDS ORDERED: PREDNISONE 20 MG TABLET PO SCH ×2 (09:00)
[2024-01-18 16:50] VITALS: BP 90/50; O2SAT 96
[2024-01-18] MEDS ORDERED: SODIUM POLYSTYRENE SULFONATE 15 G/4 TSP TSP PO SCH (19:19)
[2024-01-18] MEDS ORDERED: SODIUM BICARBONATE 50MEQ/50ML VIAL IV NR (19:30)
[2024-01-19 00:52] VITALS: BP 184/74; O2SAT 99
[2024-01-19 05:33] LABS: CALCIUM 7.8 mg/dL (8.5-10.1); CREATININE SERUM 1.31 mg/dL (0.55-1.02); GFR 38.97; POTASSIUM 5.81 mEq/L (3.5-5.1)
[2024-01-19 08:00] VITALS: BP 122/61; O2SAT 99
[2024-01-19] MEDS ORDERED: MIDAZOLAM HCL 2 MG/2 ML VIAL IV STA (11:33)
[2024-01-19] MEDS ORDERED: METOPROLOL SUCCINATE 25 MG TAB.SR.24H PO SCH (17:00)
[2024-01-19 17:01] VITALS: BP 121/69; O2SAT 99
[2024-01-19] MEDS ORDERED: MORPHINE SULFATE 4 MG/ML VIAL IV PRN (20:00)
[2024-01-19] MEDS ORDERED: OCTREOTIDE ACETATE 1,250 MCG in 0.9 % SODIUM CHLORIDE 250 ML IV SCH (20:00)
[2024-01-19 21:05] LABS: MEAN CELL VOLUME 93.2 fL (80.00-100.00); MEAN CORPUSCULAR HGB CONC 32.6 g/dl (32.0-36.0); RED BLOOD COUNT 2.37 M/uL (4.00-6.00); RED CELL DISTRIBUTION WIDTH 17.2 % (11.5-14.5)
[2024-01-19 21:10] LABS: HEMATOCRIT 22.1 % (36.0-45.00); HEMOGLOBIN 7.2 g/dL (12.0-15.00); MEAN CORPUSCULAR HEMOGLOBIN 30.3 pg (27.00-32.0); PLATELET COUNT 118 K/uL (150-450)
[2024-01-19] MEDS ORDERED: FUROsemide 20 MG/2 ML VIAL IV SCH (22:15)
[2024-01-20] VITALS (10 sets, daily range): BP systolic 91–122; BP diastolic 46–88; O2SAT 90–100
[2024-01-20] MEDS ORDERED: ACETAMINOPHEN 500 MG GEL..CAP PO PRN (00:30)
[2024-01-20] MEDS ORDERED: MORPHINE SULFATE 4 MG/ML CARTRIDGE IV PRN (09:00)
[2024-01-20] MEDS ORDERED: OCTREOTIDE ACETATE 5MCG/ML REDILUIDO IV SCH (12:30)
[2024-01-20 18:26] LABS: HEMATOCRIT 23.7 % (36.0-45.00); MEAN CELL VOLUME 90.2 fL (80.00-100.00); MEAN CORPUSCULAR HGB CONC 33.9 g/dl (32.0-36.0); RED BLOOD COUNT 2.63 M/uL (4.00-6.00); RED CELL DISTRIBUTION WIDTH 16.2 % (11.5-14.5)
[2024-01-20 18:30] LABS: MEAN CORPUSCULAR HEMOGLOBIN 30.4 pg (27.00-32.0)
[2024-01-20 18:31] LABS: PLATELET COUNT 119 K/uL (150-450)
[2024-01-20] MEDS ORDERED: PANTOPRAZOLE SODIUM 40 MG/VIAL VIAL IV SCH (20:00)
[2024-01-20] MEDS ORDERED: AMINOCAPROIC ACID 250 MG/ML VIAL IV STA (20:15)
[2024-01-21] MEDS ORDERED: AMINOCAPROIC ACID 250 MG/ML VIAL IV SCH (02:00)
[2024-01-21 07:29] VITALS: BP 93/61; O2SAT 100
[2024-01-21 12:00] VITALS: BP 108/60; O2SAT 100
[2024-01-21] MEDS ORDERED: 0.9 % SODIUM CHLORIDE 1,000 ML IV SCH (12:00)
[2024-01-21] MEDS ORDERED: DIBUCAINE 30 GM TUBE RECTAL SCH (13:00)
[2024-01-21 15:10] LABS: MEAN CELL VOLUME 86.6 fL (80.00-100.00); MEAN CORPUSCULAR HGB CONC 34.2 g/dl (32.0-36.0); PLATELET COUNT 130 K/uL (150-450); RED CELL DISTRIBUTION WIDTH 16.2 % (11.5-14.5)
[2024-01-21 15:15] VITALS: BP 107/56; O2SAT 100
[2024-01-21 15:15] LABS: MEAN CORPUSCULAR HEMOGLOBIN 29.6 pg (27.00-32.0)
[2024-01-21 15:17] LABS: HEMATOCRIT 22.5 % (36.0-45.00); HEMOGLOBIN 7.7 g/dL (12.0-15.00)
[2024-01-21 15:29] LABS: INR 1.08; PARTIAL THROMBOPLASTIN TIME 29.8 SECONDS (22.0-34.0); PROTHROMBIN TIME 11.7 SECONDS (9.0-11.5)
[2024-01-21 17:41] LABS: COL EPI 103 SECONDS (82-175)
[2024-01-21 20:00] VITALS: BP 83/57; O2SAT 100
[2024-01-21 23:31] VITALS: BP 106/37; O2SAT 100
[2024-01-22 03:05] LABS: INR 1.05; PARTIAL THROMBOPLASTIN TIME 28.9 SECONDS (22.0-34.0); PROTHROMBIN TIME 11.4 SECONDS (9.0-11.5)
[2024-01-22 04:00] VITALS: BP 134/41; O2SAT 95
[2024-01-22 07:02] VITALS: BP 128/45; O2SAT 100
[2024-01-22 12:00] VITALS: BP 123/48; O2SAT 100
[2024-01-22 14:20] LABS: HEMATOCRIT 24.8 % (36.0-45.00); MEAN CORPUSCULAR HGB CONC 33.6 g/dl (32.0-36.0); RED BLOOD COUNT 2.92 M/uL (4.00-6.00); RED CELL DISTRIBUTION WIDTH 16.3 % (11.5-14.5)
[2024-01-22 14:31] LABS: HEMOGLOBIN 8.3 g/dL (12.0-15.00); MEAN CORPUSCULAR HEMOGLOBIN 28.4 pg (27.00-32.0); PLATELET COUNT 102 K/uL (150-450)
[2024-01-22 14:58] VITALS: BP 118/75; O2SAT 100
[2024-01-22 20:00] VITALS: BP 152/52; O2SAT 100
[2024-01-22] MEDS ORDERED: SODIUM POLYSTYRENE SULFONATE 15 G/4 TSP TSP PO SCH (22:22)
[2024-01-22 23:06] VITALS: BP 163/70; O2SAT 100
[2024-01-23 04:00] VITALS: BP 157/56; O2SAT 100
[2024-01-23 07:38] VITALS: BP 157/86; O2SAT 100
[2024-01-23] MEDS ORDERED: OCTREOTIDE ACETATE 5MCG/ML REDILUIDO IV SCH (09:00)
[2024-01-23] MEDS ORDERED: BUPIVACAINE HCL/MPF 0.5% 30ML VIAL ONE (10:47)
[2024-01-23] MEDS ORDERED: LIDOCAINE HCL 1%/EPINEPHRINE 20ML VIAL IJ ONE (10:47)
[2024-01-23] MEDS ORDERED: POVIDONE-IODINE 118 ML BOTT TOP ONE (10:47)
[2024-01-23] MEDS ORDERED: DIBUCAINE 30 GM TUBE ONE (10:47)
[2024-01-23] MEDS ORDERED: HEMOSTATIC MATRIX 1 KIT KIT TOP ONE (10:47)
[2024-01-23 13:20] VITALS: BP 119/58; O2SAT 100
[2024-01-23 15:16] LABS: ALBUMIN 1.7 gm/dL (3.4-5.0); BILIRUBIN TOTAL 0.58 mg/dL (0.3-1.2); CALCIUM 7.6 mg/dL (8.5-10.1); CREATININE SERUM 1.52 mg/dL (0.55-1.02); GFR 32.82; GLOBULINA 2.5 G/DL (2.4-3.5); POTASSIUM 5.49 mEq/L (3.5-5.1); TOTAL PROTEIN 4.2 gm/dL (6.4-8.2)
[2024-01-23 15:53] VITALS: BP 134/51; O2SAT 100
[2024-01-23 20:20] VITALS: BP 129/53; O2SAT 97
[2024-01-23 23:02] VITALS: BP 106/52; O2SAT 99
[2024-01-24 04:00] VITALS: BP 134/56; O2SAT 100
[2024-01-24 07:00] VITALS: BP 141/57; O2SAT 98
[2024-01-24 08:42] LABS: MEAN CELL VOLUME 86.7 fL (80.00-100.00); MEAN CORPUSCULAR HGB CONC 34.3 g/dl (32.0-36.0); RED BLOOD COUNT 3.58 M/uL (4.00-6.00); RED CELL DISTRIBUTION WIDTH 17.3 % (11.5-14.5)
[2024-01-24 08:43] LABS: PLATELET COUNT 121 K/uL (150-450)
[2024-01-24 08:45] LABS: HEMOGLOBIN 10.6 g/dL (12.0-15.00); MEAN CORPUSCULAR HEMOGLOBIN 29.6 pg (27.00-32.0)
[2024-01-24] MEDS ORDERED: RINGERS SOLUTION,LACTATED 1,000 ML IV SCH (09:00)
[2024-01-24] MEDS ORDERED: PANTOPRAZOLE SODIUM 40 MG/VIAL VIAL IV PUSH SCH (09:02)
[2024-01-24] MEDS ORDERED: ALBUMIN HUMAN-25 0.25GM/ML (50ML) VIAL IV SCH ×3 (09:06→21:00)
[2024-01-24] MEDS ORDERED: TRAMADOL HCL 50 MG TABLET PO PRN (10:15)
[2024-01-24 10:32] LABS: ABG PH 7.313 (7.35-7.45); ABG PO2 90.6 mmHg (80-100); ABG pCO2 26.7 mmHg (35-45); BASE EXCESS -11.1 mmol/l; BICARBONATE 13.3 mmol/l (23-25); SaO2 95.6 %; Tco2 14.1 mmol/l
[2024-01-24 10:41] LABS: allen test SATISFACTORY; o2 32 %; puncture site RADIAL RIGHT
[2024-01-24] MEDS ORDERED: PANTOPRAZOLE SODIUM 40 MG/VIAL VIAL IV PUSH NR (10:43)
[2024-01-24] MEDS ORDERED: SODIUM BICARBONATE 1 MEQ/ML DISP.SYRIN 50ML IV ONE (11:45)
[2024-01-24 12:00] VITALS: BP 117/62; O2SAT 100
[2024-01-24] MEDS ORDERED: SODIUM BICARBONATE 50MEQ/50ML VIAL IV ONE (12:00)
[2024-01-24] MEDS ORDERED: FUROsemide 20 MG/2 ML VIAL IV SCH (12:00)
[2024-01-24] MEDS ORDERED: SODIUM POLYSTYRENE SULFONATE 15 G/4 TSP TSP PO SCH (12:00)
[2024-01-24] MEDS ORDERED: SOD FERRIC GLUC COMPLX/SUCROSE 62.5 MG in 0.9 % SODIUM CHLORIDE 50 ML IV SCH (12:00)
[2024-01-24 14:53] VITALS: BP 117/62; BP 119/50; O2SAT 98
[2024-01-24 20:00] VITALS: BP 110/83; O2SAT 100
[2024-01-24] MEDS ORDERED: ALBUMIN HUMAN 100 ML VIAL IV SCH (21:00)
[2024-01-24 23:16] VITALS: BP 113/98; O2SAT 100
[2024-01-25 04:00] VITALS: BP 118/55; O2SAT 99
[2024-01-25 07:10] LABS: HEMATOCRIT 31.3 % (36.0-45.00); HEMOGLOBIN 10.6 g/dL (12.0-15.00); MEAN CELL VOLUME 86.5 fL (80.00-100.00); MEAN CORPUSCULAR HEMOGLOBIN 29.3 pg (27.00-32.0); MEAN CORPUSCULAR HGB CONC 33.8 g/dl (32.0-36.0); PLATELET COUNT 145 K/uL (150-450); RED BLOOD COUNT 3.61 M/uL (4.00-6.00); RED CELL DISTRIBUTION WIDTH 17.3 % (11.5-14.5)
[2024-01-25 07:30] VITALS: BP 137/57; O2SAT 99
[2024-01-25 08:04] LABS: CALCIUM 7.8 mg/dL (8.5-10.1); CREATININE SERUM 1.11 mg/dL (0.55-1.02); GFR 47.18; POTASSIUM 5.12 mEq/L (3.5-5.1)
[2024-01-25] MEDS ORDERED: RINGERS SOLUTION,LACTATED 1,000 ML IV SCH (09:00)
[2024-01-25 11:17] LABS: ABG PH 7.363 (7.35-7.45); ABG PO2 112.7 mmHg (80-100); ABG pCO2 32.6 mmHg (35-45); BASE EXCESS -6.1 mmol/l; BICARBONATE 18.1 mmol/l (23-25); SaO2 98.1 %; Tco2 19.1 mmol/l; allen test SATISFACTORY; o2 32 %; puncture site RADIAL RIGHT
[2024-01-25 12:00] VITALS: BP 127/72; O2SAT 100
[2024-01-25 15:15] VITALS: BP 127/72; O2SAT 100
[2024-01-25 20:00] VITALS: BP 135/67; O2SAT 99
[2024-01-25 23:19] VITALS: BP 137/72; O2SAT 100
[2024-01-26 04:00] VITALS: BP 121/61; O2SAT 99
[2024-01-26 06:45] LABS: MEAN CELL VOLUME 86.2 fL (80.00-100.00); MEAN CORPUSCULAR HEMOGLOBIN 29.7 pg (27.00-32.0); MEAN CORPUSCULAR HGB CONC 34.5 g/dl (32.0-36.0); RED BLOOD COUNT 3.71 M/uL (4.00-6.00); RED CELL DISTRIBUTION WIDTH 17.6 % (11.5-14.5)
[2024-01-26 06:47] LABS: PLATELET COUNT 124 K/uL (150-450)
[2024-01-26 06:58] LABS: CALCIUM 7.9 mg/dL (8.5-10.1); CREATININE SERUM 0.97 mg/dL (0.55-1.02); GFR 55.12; POTASSIUM 3.59 mEq/L (3.5-5.1)
[2024-01-26 07:01] VITALS: BP 133/59; O2SAT 100
[2024-01-26] MEDS ORDERED: SODIUM CHLORIDE 0.45 % 1,000 ML IV SCH (10:00)
[2024-01-26] MEDS ORDERED: FUROsemide 20 MG TABLET PO NR (10:05)
[2024-01-26 12:00] VITALS: BP 140/84; O2SAT 99
[2024-01-26 15:44] VITALS: BP 140/84; O2SAT 99
[2024-01-26] MEDS ORDERED: PANTOPRAZOLE SODIUM 40 MG TABLET.DR PO SCH (18:44)
[2024-01-26] MEDS ORDERED: PANTOPRAZOLE SODIUM 40 MG TABLET.DR PO ONE (18:47)
[2024-01-27] VITALS (8 sets, daily range): BP systolic 117–158; BP diastolic 57–71; O2SAT 96–98
[2024-01-27] MEDS ORDERED: FUROsemide 20 MG TABLET PO SCH (09:00)
[2024-01-27 09:30] LABS: HEMATOCRIT 30.2 % (36.0-45.00); HEMOGLOBIN 10.5 g/dL (12.0-15.00); MEAN CORPUSCULAR HEMOGLOBIN 29.6 pg (27.00-32.0); MEAN CORPUSCULAR HGB CONC 34.9 g/dl (32.0-36.0); RED BLOOD COUNT 3.55 M/uL (4.00-6.00)
[2024-01-27 09:41] LABS: CALCIUM 7.5 mg/dL (8.5-10.1); CREATININE SERUM 0.72 mg/dL (0.55-1.02); GFR 77.74; POTASSIUM 3.12 mEq/L (3.5-5.1)
[2024-01-27 10:26] LABS: PLATELET COUNT 114 K/uL (150-450)
[2024-01-27] MEDS ORDERED: ACETAMINOPHEN 500 MG GEL..CAP PO PRN (16:30)
[2024-01-27] MEDS ORDERED: TEMAZEPAM 15 MG CAPSULE PO SCH (21:00)
[2024-01-28 02:00] VITALS: BP 139/70
[2024-01-28 09:00] LABS: CALCIUM 7.2 mg/dL (8.5-10.1); CREATININE SERUM 0.65 mg/dL (0.55-1.02); GFR 87.48; PHOSPHOROUS 2.3 mg/dL (2.5-4.9); POTASSIUM 3.36 mEq/L (3.5-5.1)
[2024-01-28 09:47] VITALS: BP 128/66; O2SAT 98
[2024-01-28] MEDS ORDERED: MAGNESIUM SULFATE/D5W 100 ML IV NR (17:15)
[2024-01-28] MEDS ORDERED: POTASSIUM CHLORIDE IN WATER 40 MEQ/100 ML PIGGYBAG IV NR (17:15)
[2024-01-28 17:35] VITALS: BP 156/79
[2024-01-29 02:00] VITALS: BP 149/78
[2024-01-29 07:15] LABS: ALBUMIN 1.6 gm/dL (3.4-5.0); CALCIUM 6.9 mg/dL (8.5-10.1); CREATININE SERUM 0.54 mg/dL (0.55-1.02); GFR 108.35; POTASSIUM 3.6 mEq/L (3.5-5.1)
[2024-01-29 08:41] LABS: MAGNESIUM 1.3 mg/dL (1.8-2.4)
[2024-01-29 09:25] VITALS: BP 149/67; O2SAT 99
[2024-01-29] MEDS ORDERED: POTASSIUM PHOS,M-BASIC-D-BASIC 3 MM/ML VIAL IV NR (12:30)
[2024-01-29] MEDS ORDERED: MAGNESIUM SULFATE IN WATER 2 GM/50 ML PIGGYBAG IV NR (12:37)
[2024-01-29 17:44] VITALS: BP 158/80; O2SAT 99
[2024-01-30 02:40] VITALS: BP 160/70; O2SAT 97
[2024-01-30 09:19] VITALS: BP 159/99; O2SAT 97
[2024-01-30 10:30] LABS: ALBUMIN 1.7 gm/dL (3.4-5.0); BILIRUBIN TOTAL 0.6 mg/dL (0.3-1.2); CALCIUM 6.9 mg/dL (8.5-10.1); CREATININE SERUM 0.47 mg/dL (0.55-1.02); GFR 127.18; GLOBULINA 2.4 G/DL (2.4-3.5); MAGNESIUM 1.5 mg/dL (1.8-2.4); POTASSIUM 3.89 mEq/L (3.5-5.1); TOTAL PROTEIN 4.1 gm/dL (6.4-8.2)
[2024-01-30 16:10] VITALS: BP 155/55; O2SAT 93
[2024-01-31 02:00] VITALS: BP 144/66; O2SAT 98
[2024-01-31 08:03] VITALS: BP 132/80; O2SAT 99
[2024-01-31 10:19] LABS: ABG PH 7.471 (7.35-7.45); ABG PO2 77.8 mmHg (80-100); ABG pCO2 35.4 mmHg (35-45); BICARBONATE 25.3 mmol/l (23-25); SaO2 96.3 %; Tco2 26.4 mmol/l
[2024-01-31] MEDS ORDERED: MAGNESIUM SULFATE IN WATER 50 ML IV SCH (12:00)
[2024-01-31] MEDS ORDERED: POTASSIUM PHOS,M-BASIC-D-BASIC 18 MM in 0.9 % SODIUM CHLORIDE 250 ML IV ONE (12:00)
[2024-01-31 12:35] LABS: allen test SATISFACTORY; o2 21 %; puncture site RADIAL RIGHT
[2024-01-31] MEDS ORDERED: METHYLPREDNISOLONE SOD SUCC 40 MG VIAL IV SCH (17:14)
[2024-01-31] MEDS ORDERED: KETOROLAC TROMETHAMINE 30 MG VIAL IV PRN (17:15)
[2024-01-31] MEDS ORDERED: LABETALOL HCL 20MG/4ML SYRINGE IV PRN (17:30)
[2024-01-31] MEDS ORDERED: DEXTROSE 5 % AND 0.9 % NACL 1,000 ML IV SCH (17:30)
[2024-01-31 20:43] VITALS: BP 150/80; O2SAT 96
[2024-01-31] MEDS ORDERED: LORazepam 2 MG/ML VIAL IM SCH (21:00)
[2024-01-31] MEDS ORDERED: PANTOPRAZOLE SODIUM 40 MG/VIAL VIAL IV PUSH SCH (21:00)
[2024-02-01 01:46] VITALS: BP 150/69
[2024-02-01] MEDS ORDERED: LEVOTHYROXINE SODIUM 100 MCG/VIAL VIAL IV SCH (09:00)
[2024-02-01 09:29] LABS: ALBUMIN 1.9 gm/dL (3.4-5.0); BILIRUBIN TOTAL 0.57 mg/dL (0.3-1.2); CALCIUM 7.4 mg/dL (8.5-10.1); CREATININE SERUM 0.58 mg/dL (0.55-1.02); GFR 99.77; GLOBULINA 2.6 G/DL (2.4-3.5); POTASSIUM 4.01 mEq/L (3.5-5.1); TOTAL PROTEIN 4.5 gm/dL (6.4-8.2)
[2024-02-01 10:37] VITALS: BP 142/66
[2024-02-01 14:28] LABS: HEMOGLOBIN 12.3 g/dL (12.0-15.00); MEAN CORPUSCULAR HEMOGLOBIN 29.4 pg (27.00-32.0); MEAN CORPUSCULAR HGB CONC 34.2 g/dl (32.0-36.0); RED BLOOD COUNT 4.19 M/uL (4.00-6.00)
[2024-02-01 14:44] LABS: PLATELET COUNT 107 K/uL (150-450)
[2024-02-01 14:59] LABS: PHOSPHOROUS 2.2 mg/dL (2.5-4.9)
[2024-02-06 17:10] LABS: ASPERGILLUS FLAVUS Negative (Neg:<1:1); ASPERGILLUS FUMIGATUS Negative (Neg:<1:1); ASPERGILLUS NIGER Negative (Neg:<1:1)
== END 2024-02-01 18:10 | disposition home or self-care (01) | DRG 867 ==
LOC: ER 13:09 → SEC-K 19:17 → MEDJ 19:17 → ICU 19:17 → MEDJ 23:51 → ICU 12-28 14:19 → MEDI 12-29 18:19 → ICU 01-20 19:55 → MEDJ 01-26 21:42
PROVIDERS: Colon & Rectal Surgery; General Practice; Internal Medicine; Internal Medicine Gastroenterology; Internal Medicine Nephrology; Student in an Organized Health Care Education/Training Program; ADMIT Internal Medicine; ATTEND Internal Medicine
PROC: BW24ZZZ Computerized Tomography (CT Scan) of Chest and Abdomen (ICD-10-PCS; 2023-12-13)
PROC: BW24ZZZ Computerized Tomography (CT Scan) of Chest and Abdomen (ICD-10-PCS; 2023-12-25)
PROC: B54DZZZ Ultrasonography of Bilateral Lower Extremity Veins (ICD-10-PCS; 2023-12-25)
PROC: 0B9L7ZX Drainage of Left Lung, Via Natural or Artificial Opening, Diagnostic (ICD-10-PCS; principal; 2023-12-28 09:15)
PROC: 0BBL3ZX Excision of Left Lung, Percutaneous Approach, Diagnostic (ICD-10-PCS; 2024-01-12)
PROC: 0DJD8ZZ Inspection of Lower Intestinal Tract, Via Natural or Artificial Opening Endoscopic (ICD-10-PCS; 2024-01-19)
PROC: 4A12X4Z Monitoring of Cardiac Electrical Activity, External Approach (ICD-10-PCS; 2024-01-20)
PROC: 30233N1 Transfusion of Nonautologous Red Blood Cells into Peripheral Vein, Percutaneous Approach (ICD-10-PCS; 2024-01-20)
PROC: 30233L1 Transfusion of Nonautologous Fresh Plasma into Peripheral Vein, Percutaneous Approach (ICD-10-PCS; 2024-01-21)
PROC: 0DJD8ZZ Inspection of Lower Intestinal Tract, Via Natural or Artificial Opening Endoscopic (ICD-10-PCS; 2024-01-23)
PROC: 3E0T3BZ Introduction of Anesthetic Agent into Peripheral Nerves and Plexi, Percutaneous Approach (ICD-10-PCS; 2024-01-23)
DX: B44.1 Other pulmonary aspergillosis (principal); J18.0 Bronchopneumonia, unspecified organism; E87.0 Hyperosmolality and hypernatremia; N17.9 Acute kidney failure, unspecified; I13.0 Hypertensive heart and chronic kidney disease with heart failure and stage 1 through stage 4 chronic kidney disease, or unspecified chronic kidney disease; I50.30 Unspecified diastolic (congestive) heart failure; J98.19 Other pulmonary collapse; K92.2 Gastrointestinal hemorrhage, unspecified; E87.20 Acidosis, unspecified; K62.6 Ulcer of anus and rectum; E87.3 Alkalosis; J98.4 Other disorders of lung; R91.8 Other nonspecific abnormal finding of lung field; E03.9 Hypothyroidism, unspecified; J44.9 Chronic obstructive pulmonary disease, unspecified; N18.9 Chronic kidney disease, unspecified; E66.01 Morbid (severe) obesity due to excess calories; D69.6 Thrombocytopenia, unspecified; I48.91 Unspecified atrial fibrillation; K44.9 Diaphragmatic hernia without obstruction or gangrene; E87.5 Hyperkalemia; D64.9 Anemia, unspecified; G47.33 Obstructive sleep apnea (adult) (pediatric); M06.9 Rheumatoid arthritis, unspecified

== ENCOUNTER 2024-02-02 08:52 | Inpatient (IN) | payer OTHER ==
[~2024-02-02] VITALS: Ht 160 cm; Wt 99.8 kg
[~2024-02-02 08:52] MED LIST: CANDESARTAN CIL32 MG PO; DOXAZOSIN MESYLA4 MG PO; HYDROXYCHLOROQ200 MG PO; LEVOTHYROXINE100 MCG PO; METOPROLOL SUC200 MG PO; PANTOPRAZOLE SO40 MG PO; PREVALITE PACKET4 GM PO; RESTORIL30 MG PO
[2024-02-02] MEDS ORDERED: 0.9 % SODIUM CHLORIDE 1,000 ML IV SCH (09:15)
[2024-02-02] MEDS ORDERED: 0.9 % SODIUM CHLORIDE 1,000 ML IV STA (10:34)
[2024-02-02 10:45] LABS: HEMATOCRIT 30.6 % (36.0-45.00); MEAN CELL VOLUME 86.8 fL (80.00-100.00); PLATELET COUNT 225 K/uL (150-450); RED BLOOD COUNT 3.52 M/uL (4.00-6.00); RED CELL DISTRIBUTION WIDTH 17.9 % (11.5-14.5)
[2024-02-02] MEDS ORDERED: METRONIDAZOLE/SODIUM CHLORIDE 500 MG/100 ML PIGGYBACK IV ONE ×2 (10:45)
[2024-02-02] MEDS ORDERED: CIPROFLOXACIN IN 5 % DEXTROSE 400 MG/200 ML PIGGYBAG IV ONE (10:45)
[2024-02-02 10:54] LABS: INR 1.17; PARTIAL THROMBOPLASTIN TIME 22.9 SECONDS (22.0-34.0)
[2024-02-02 10:58] LABS: HEMOGLOBIN 10.1 g/dL (12.0-15.00); MEAN CORPUSCULAR HEMOGLOBIN 28.6 pg (27.00-32.0)
[2024-02-02 11:01] LABS: CREATININE SERUM 0.82 mg/dL (0.55-1.02); GFR 66.91; POTASSIUM 4.66 mEq/L (3.5-5.1)
[2024-02-02 11:03] LABS: PROTHROMBIN TIME 12.6 SECONDS (9.0-11.5)
[2024-02-02 11:56] LABS: URINE APPEARANCE Turbid; URINE BILIRRUBIN Negative (NEGATIVE); URINE BLOOD Moderate; URINE COLOR Dark Yellow; URINE GLUCOSE Negative (NEGATIVE); URINE KETONE Negative (NEGATIVE); URINE LEUKOCYTE Large; URINE NITRATE Negative
[2024-02-02 11:57] LABS: URINE CAST 9.09 uL (0.0-1.40); URINE EPITHELIAL CELLS 42.6 uL (0.0-38.8); URINE WBC 4260.4 uL (0.0-23.2)
[2024-02-02 12:12] LABS: URINE BACTERIA > 9821.5 uL (0.0-1933); URINE PROTEIN 100 (NEGATIVE)
[2024-02-02 12:15] LABS: URINE CRYSTALS FEW /HPF
[2024-02-02 15:38] VITALS: BP 125/49; O2SAT 100
[2024-02-02 23:47] VITALS: BP 133/42; O2SAT 100
[2024-02-03 04:53] VITALS: BP 100/52; O2SAT 100
[2024-02-03 07:51] VITALS: BP 107/80; O2SAT 99
[2024-02-03] MEDS ORDERED: CHLORHEXIDINE GLUCONATE 120 ML BOTTLE TOP ONE (11:05)
[2024-02-03 12:01] VITALS: BP 102/50; O2SAT 100
[2024-02-03 15:45] VITALS: BP 114/39; O2SAT 100
[2024-02-03 17:51] LABS: HEMATOCRIT 33.5 % (36.0-45.00); HEMOGLOBIN 11.3 g/dL (12.0-15.00); MEAN CELL VOLUME 85.9 fL (80.00-100.00); MEAN CORPUSCULAR HGB CONC 33.8 g/dl (32.0-36.0); PLATELET COUNT 81 K/uL (150-450); RED BLOOD COUNT 3.89 M/uL (4.00-6.00); RED CELL DISTRIBUTION WIDTH 16.7 % (11.5-14.5)
[2024-02-03 19:35] VITALS: BP 95/74; O2SAT 100
[2024-02-03] MEDS ORDERED: PIPERACILLIN/TAZOBACTAM SODIUM 3.375 GM VIAL IV SCH (21:00)
[2024-02-03 21:51] VITALS: O2SAT 99
[2024-02-03] MEDS ORDERED: ACETAMINOPHEN 500 MG GEL..CAP PO PRN (23:00)
[2024-02-04] VITALS (8 sets, daily range): BP systolic 121–167; BP diastolic 71–81; O2SAT 94–99
[2024-02-04 06:07] LABS: HEMATOCRIT 28.8 % (36.0-45.00); HEMOGLOBIN 9.8 g/dL (12.0-15.00); MEAN CELL VOLUME 86.1 fL (80.00-100.00); MEAN CORPUSCULAR HEMOGLOBIN 29.3 pg (27.00-32.0); RED BLOOD COUNT 3.35 M/uL (4.00-6.00); RED CELL DISTRIBUTION WIDTH 16.2 % (11.5-14.5)
[2024-02-04 06:17] LABS: PLATELET COUNT 70 K/uL (150-450)
[2024-02-04 06:25] LABS: ALBUMIN 1.5 gm/dL (3.4-5.0); BILIRUBIN TOTAL 0.48 mg/dL (0.3-1.2); CALCIUM 7.6 mg/dL (8.5-10.1); CREATININE SERUM 0.93 mg/dL (0.55-1.02); GFR 57.86; GLOBULINA 1.7 G/DL (2.4-3.5); POTASSIUM 4.3 mEq/L (3.5-5.1); TOTAL PROTEIN 3.2 gm/dL (6.4-8.2)
[2024-02-04] MEDS ORDERED: PANTOPRAZOLE SODIUM 40 MG/VIAL VIAL IV NR (13:00)
[2024-02-05] VITALS (8 sets, daily range): BP systolic 119–171; BP diastolic 59–79; O2SAT 96–100
[2024-02-05 07:18] LABS: HEMATOCRIT 30.7 % (36.0-45.00); HEMOGLOBIN 10.6 g/dL (12.0-15.00); MEAN CELL VOLUME 85.8 fL (80.00-100.00); MEAN CORPUSCULAR HEMOGLOBIN 29.6 pg (27.00-32.0); MEAN CORPUSCULAR HGB CONC 34.5 g/dl (32.0-36.0); RED BLOOD COUNT 3.58 M/uL (4.00-6.00); RED CELL DISTRIBUTION WIDTH 16.7 % (11.5-14.5)
[2024-02-05 07:42] LABS: PLATELET COUNT 66 K/uL (150-450)
[2024-02-05] MEDS ORDERED: PANTOPRAZOLE SODIUM 40 MG in 0.9 % SODIUM CHLORIDE 8 ML IV PUSH SCH (09:00)
[2024-02-06] VITALS (10 sets, daily range): BP systolic 126–196; BP diastolic 63–83; O2SAT 98–100
[2024-02-06] MEDS ORDERED: CANDESARTAN CILEXETIL 32 MG TABLET PO SCH (12:00)
[2024-02-06] MEDS ORDERED: METOPROLOL SUCCINATE 100 MG TAB.SR.24H PO SCH (12:00)
[2024-02-06] MEDS ORDERED: DOXAZOSIN MESYLATE 4 MG TABLET PO SCH (17:00)
[2024-02-07] VITALS (8 sets, daily range): BP systolic 128–143; BP diastolic 62–74; O2SAT 98–100
[2024-02-07] MEDS ORDERED: LEVOTHYROXINE SODIUM 100 MCG TABLET PO SCH (06:00)
[2024-02-07 09:21] LABS: HEMATOCRIT 34.1 % (36.0-45.00); HEMOGLOBIN 11.3 g/dL (12.0-15.00); MEAN CORPUSCULAR HEMOGLOBIN 29.2 pg (27.00-32.0); MEAN CORPUSCULAR HGB CONC 33.2 g/dl (32.0-36.0); RED BLOOD COUNT 3.87 M/uL (4.00-6.00)
[2024-02-07 09:25] LABS: PLATELET COUNT 74 K/uL (150-450)
[2024-02-08] VITALS (9 sets, daily range): BP systolic 127–136; BP diastolic 61–81; O2SAT 96–100
[2024-02-09] VITALS (8 sets, daily range): BP systolic 117–142; BP diastolic 69–80; O2SAT 95–100
[2024-02-09 06:54] LABS: CALCIUM 7.1 mg/dL (8.5-10.1); CREATININE SERUM 0.55 mg/dL (0.55-1.02); GFR 106.08; POTASSIUM 3.38 mEq/L (3.5-5.1)
[2024-02-09 07:00] LABS: HEMATOCRIT 31.3 % (36.0-45.00); HEMOGLOBIN 10.5 g/dL (12.0-15.00); MEAN CELL VOLUME 86.1 fL (80.00-100.00); MEAN CORPUSCULAR HGB CONC 33.7 g/dl (32.0-36.0); RED BLOOD COUNT 3.64 M/uL (4.00-6.00); RED CELL DISTRIBUTION WIDTH 17.2 % (11.5-14.5)
[2024-02-09 07:01] LABS: PLATELET COUNT 62 K/uL (150-450)
[2024-02-09] MEDS ORDERED: PANTOPRAZOLE SODIUM 40 MG/VIAL VIAL ONE (08:24)
[2024-02-09] MEDS ORDERED: FUROsemide 20 MG/2 ML VIAL IV NR (16:57)
[2024-02-09] MEDS ORDERED: SODIUM CHLORIDE 0.45 % 1,000 ML IV SCH (17:00)
[2024-02-09] MEDS ORDERED: TEMAZEPAM 15 MG CAPSULE PO SCH (21:00)
[2024-02-09] MEDS ORDERED: FUROsemide 20 MG/2 ML VIAL IV SCH (21:00)
[2024-02-10] VITALS (9 sets, daily range): BP systolic 115–130; BP diastolic 63–73; O2SAT 97–100
[2024-02-10 08:50] LABS: ALBUMIN 1.4 gm/dL (3.4-5.0); BILIRUBIN TOTAL 0.3 mg/dL (0.3-1.2); CALCIUM 7.1 mg/dL (8.5-10.1); CREATININE SERUM 0.67 mg/dL (0.55-1.02); GFR 84.47; POTASSIUM 3.07 mEq/L (3.5-5.1); TOTAL PROTEIN 3.4 gm/dL (6.4-8.2)
[2024-02-10 09:47] LABS: PHOSPHOROUS 1.7 mg/dL (2.5-4.9)
[2024-02-10 10:31] LABS: HEMATOCRIT 27.9 % (36.0-45.00); MEAN CELL VOLUME 85.4 fL (80.00-100.00); MEAN CORPUSCULAR HGB CONC 34.2 g/dl (32.0-36.0); RED BLOOD COUNT 3.27 M/uL (4.00-6.00); RED CELL DISTRIBUTION WIDTH 17.1 % (11.5-14.5)
[2024-02-10 10:45] LABS: HEMOGLOBIN 9.5 g/dL (12.0-15.00); PLATELET COUNT 51 K/uL (150-450)
[2024-02-10] MEDS ORDERED: DEXTROSE 5 % IN WATER 1,000 ML IV SCH (14:30)
[2024-02-10] MEDS ORDERED: MAGNESIUM SULFATE IN WATER 50 ML IV NR (14:45)
[2024-02-10] MEDS ORDERED: TRAMADOL HCL 50 MG TABLET PO PRN (16:15)
[2024-02-10] MEDS ORDERED: POTASSIUM PHOS,M-BASIC-D-BASIC 3 MM/ML VIAL IV SCH (17:00)
[2024-02-10] MEDS ORDERED: AMINO ACIDS/PROTEIN HYDROLYS 30 ML BLIST.PACK PO SCH (17:00)
[2024-02-11] VITALS (9 sets, daily range): BP systolic 101–119; BP diastolic 57–65; O2SAT 96–100
[2024-02-11 07:28] LABS: ALBUMIN 1.3 gm/dL (3.4-5.0); BILIRUBIN TOTAL 0.28 mg/dL (0.3-1.2); CREATININE SERUM 0.73 mg/dL (0.55-1.02); GFR 76.51; GLOBULINA 1.8 G/DL (2.4-3.5); PHOSPHOROUS 3.5 mg/dL (2.5-4.9); POTASSIUM 3.42 mEq/L (3.5-5.1); TOTAL PROTEIN 3.1 gm/dL (6.4-8.2)
[2024-02-11 07:55] LABS: HEMATOCRIT 26.8 % (36.0-45.00); HEMOGLOBIN 9.3 g/dL (12.0-15.00); MEAN CELL VOLUME 85.4 fL (80.00-100.00); MEAN CORPUSCULAR HEMOGLOBIN 29.6 pg (27.00-32.0); MEAN CORPUSCULAR HGB CONC 34.6 g/dl (32.0-36.0); RED BLOOD COUNT 3.14 M/uL (4.00-6.00); RED CELL DISTRIBUTION WIDTH 17.6 % (11.5-14.5)
[2024-02-11 08:49] LABS: CALCIUM 6.3 mg/dL (8.5-10.1); MAGNESIUM 1.2 mg/dL (1.8-2.4)
[2024-02-11 09:36] LABS: PLATELET COUNT 30 K/uL (150-450)
[2024-02-11] MEDS ORDERED: MAGNESIUM SULFATE IN WATER 50 ML IV NR (11:49)
[2024-02-11 15:56] LABS: D DIMER 5.79 MG/L; FIBRINOGEN 154 mg/dL (187.0-446.0); PARTIAL THROMBOPLASTIN TIME 28.5 SECONDS (22.0-34.0); PROTHROMBIN TIME 11.9 SECONDS (9.0-11.5)
[2024-02-11 16:05] LABS: COL EPI 112 SECONDS (82-175)
[2024-02-11] MEDS ORDERED: ALBUMIN HUMAN-25 0.25GM/ML (50ML) VIAL IV SCH (17:00)
[2024-02-11] MEDS ORDERED: FUROsemide 20 MG/2 ML VIAL IV SCH (17:00)
[2024-02-12] VITALS (9 sets, daily range): BP systolic 106–110; BP diastolic 58–71; O2SAT 96–100
[2024-02-12 08:30] LABS: PLATELET ESTIMATE DECREASED (NORMAL)
[2024-02-12 15:38] LABS: HEMATOCRIT 26.2 % (36.0-45.00); MEAN CELL VOLUME 89.6 fL (80.00-100.00); MEAN CORPUSCULAR HGB CONC 32.4 g/dl (32.0-36.0); RED BLOOD COUNT 2.92 M/uL (4.00-6.00); RED CELL DISTRIBUTION WIDTH 17.6 % (11.5-14.5)
[2024-02-12 15:39] LABS: HEMOGLOBIN 8.5 g/dL (12.0-15.00); MEAN CORPUSCULAR HEMOGLOBIN 29.1 pg (27.00-32.0); PLATELET COUNT 54 K/uL (150-450)
[2024-02-12 21:23] LABS: FECAL LEUKOCYTES POSITIVE (NEGATIVE); ob POSITIVE (NEGATIVE)
[2024-02-13] VITALS (9 sets, daily range): BP systolic 110–138; BP diastolic 45–66; O2SAT 96–100
[2024-02-13] MEDS ORDERED: TRAMADOL HCL 50 MG TABLET PO PRN (03:00)
[2024-02-13] MEDS ORDERED: ALLOPURINOL 100 MG TABLET PO SCH (09:00)
[2024-02-13] MEDS ORDERED: POTASSIUM CHLORIDE IN WATER 40 MEQ/100 ML PIGGYBAG IV NR (11:00)
[2024-02-13] MEDS ORDERED: MAGNESIUM SULFATE IN WATER 50 ML IV SCH (12:00)
[2024-02-13] MEDS ORDERED: BUMETANIDE 2.5 MG/10 ML VIAL IV SCH (13:00)
[2024-02-13] MEDS ORDERED: ALBUMIN HUMAN 100 ML VIAL IV SCH (13:00)
[2024-02-13] MEDS ORDERED: PREDNISONE 20 MG TABLET PO NR (13:28)
[2024-02-13] MEDS ORDERED: FAMOTIDINE/PF 20 MG/2 ML VIAL IV SCH (21:00)
[2024-02-14] VITALS (9 sets, daily range): BP systolic 123–138; BP diastolic 62–72; O2SAT 97–100
[2024-02-14] MEDS ORDERED: HYDROCORTISONE ACETATE 25 MG/SUPP.RECT SUPP.RECT RECTAL SCH (09:00)
[2024-02-14] MEDS ORDERED: PREDNISONE 20 MG TABLET PO SCH (09:00)
[2024-02-15 01:39] VITALS: BP 145/76; O2SAT 99
[2024-02-15 05:31] VITALS: O2SAT 99
[2024-02-15 09:16] VITALS: BP 137/77; O2SAT 97
[2024-02-15 09:18] LABS: HEMOGLOBIN 11.2 g/dL (12.0-15.00); MEAN CELL VOLUME 84.7 fL (80.00-100.00); MEAN CORPUSCULAR HEMOGLOBIN 29.6 pg (27.00-32.0); MEAN CORPUSCULAR HGB CONC 34.9 g/dl (32.0-36.0); RED BLOOD COUNT 3.78 M/uL (4.00-6.00); RED CELL DISTRIBUTION WIDTH 17.7 % (11.5-14.5)
[2024-02-15 09:24] LABS: PLATELET COUNT 78 K/uL (150-450)
[2024-02-15 09:29] VITALS: O2SAT 97
[2024-02-15 09:53] LABS: CALCIUM 8.7 mg/dL (8.5-10.1); CREATININE SERUM 0.85 mg/dL (0.55-1.02); GFR 64.19; MAGNESIUM 1.7 mg/dL (1.8-2.4); PHOSPHOROUS 3.2 mg/dL (2.5-4.9); POTASSIUM 3.95 mEq/L (3.5-5.1)
[2024-02-15 16:39] VITALS: BP 148/74
[2024-02-15 21:03] LABS: PLEURAL FLUID APPEARANCE CRYSTAL CLEAR; PLEURAL FLUID COLOR YELLOW
[2024-02-15 21:24] LABS: TP PLEURAL FLUID 0.9 g/dl
[2024-02-15 21:51] LABS: MONONUCLEAR 91 %; POLYMORPHONUCLEAR 9 %
[2024-02-16 01:13] VITALS: BP 145/69; O2SAT 97
[2024-02-16 09:28] VITALS: BP 142/72; O2SAT 93
[2024-02-16] MEDS ORDERED: FUROsemide 20 MG/2 ML VIAL IV STA (14:29)
[2024-02-16] MEDS ORDERED: FUROsemide 20 MG/2 ML VIAL IV SCH (18:00)
[2024-02-16 18:52] VITALS: BP 101/83
[2024-02-16] MEDS ORDERED: TEMAZEPAM 15 MG CAPSULE PO SCH (23:00)
[2024-02-17 02:23] VITALS: BP 155/72
[2024-02-17 08:23] VITALS: BP 150/72; O2SAT 99
[2024-02-17] MEDS ORDERED: PANTOPRAZOLE SODIUM 40 MG TABLET.DR PO SCH (09:00)
[2024-02-17 13:53] VITALS: BP 127/65; O2SAT 97
== END 2024-02-17 14:49 | disposition home or self-care (01) | DRG 186 ==
LOC: ER 08:52 → ICU 13:01 → ICU-2 13:01 → ICU 02-03 04:15 → MEDI 02-03 21:57
PROVIDERS: Emergency Medicine; Internal Medicine; Internal Medicine Hematology & Oncology; Radiology Vascular & Interventional Radiology; Surgery; ADMIT Internal Medicine; ATTEND Internal Medicine
PROC: 02HV33Z Insertion of Infusion Device into Superior Vena Cava, Percutaneous Approach (ICD-10-PCS; 2024-02-02)
PROC: 30233L1 Transfusion of Nonautologous Fresh Plasma into Peripheral Vein, Percutaneous Approach (ICD-10-PCS; 2024-02-02)
PROC: 30233N1 Transfusion of Nonautologous Red Blood Cells into Peripheral Vein, Percutaneous Approach (ICD-10-PCS; 2024-02-03)
PROC: BB24ZZZ Computerized Tomography (CT Scan) of Bilateral Lungs (ICD-10-PCS; principal; 2024-02-11)
PROC: 4A12X4Z Monitoring of Cardiac Electrical Activity, External Approach (ICD-10-PCS; 2024-02-13)
PROC: 0W993ZZ Drainage of Right Pleural Cavity, Percutaneous Approach (ICD-10-PCS; 2024-02-15)
DX: J90 Pleural effusion, not elsewhere classified (principal); J18.9 Pneumonia, unspecified organism; K62.5 Hemorrhage of anus and rectum; N39.0 Urinary tract infection, site not specified; D72.828 Other elevated white blood cell count; I11.9 Hypertensive heart disease without heart failure; B96.29 Other Escherichia coli [E. coli] as the cause of diseases classified elsewhere; D50.0 Iron deficiency anemia secondary to blood loss (chronic); I12.9 Hypertensive chronic kidney disease with stage 1 through stage 4 chronic kidney disease, or unspecified chronic kidney disease; N18.9 Chronic kidney disease, unspecified; D69.6 Thrombocytopenia, unspecified; E03.8 Other specified hypothyroidism

== ENCOUNTER → 2024-02-20 | Emergency (ER) | payer OTHER ==
[~2024-02-20] VITALS: Ht 160 cm; Wt 95.3 kg
[~2024-02-20] MED LIST changes: +DOXAZOSIN MESYLATE 4 MG TABLET PO SCH; +TEMAZEPAM 15 MG CAPSULE PO SCH
[2024-02-20 16:39] LABS: HEMATOCRIT 33.3 % (36.0-45.00); MEAN CELL VOLUME 87.9 fL (80.00-100.00); RED BLOOD COUNT 3.78 M/uL (4.00-6.00); RED CELL DISTRIBUTION WIDTH 18.9 % (11.5-14.5)
[2024-02-20 16:40] LABS: PLATELET COUNT 93 K/uL (150-450)
[2024-02-20 17:12] LABS: ALBUMIN 2.3 gm/dL (3.4-5.0); BILIRUBIN TOTAL 0.38 mg/dL (0.3-1.2); CALCIUM 8.2 mg/dL (8.5-10.1); CREATININE SERUM 1.14 mg/dL (0.55-1.02); GFR 45.74; GLOBULINA 2.5 G/DL (2.4-3.5); POTASSIUM 4.32 mEq/L (3.5-5.1); TOTAL PROTEIN 4.8 gm/dL (6.4-8.2)
[2024-02-21 10:02] LABS: ABG PH 7.461 (7.35-7.45); ABG PO2 92.8 mmHg (80-100); ABG pCO2 43.9 mmHg (35-45); BICARBONATE 30.6 mmol/l (23-25); SaO2 97.8 %; Tco2 31.9 mmol/l; o2 21 %
[2024-02-21 10:03] LABS: puncture site BRADIAL RIGHT
== END | disposition home or self-care (01) ==
LOC: ER 12:08
PROVIDERS: Emergency Medicine
DX: J90 Pleural effusion, not elsewhere classified (principal); I10 Essential (primary) hypertension; G47.30 Sleep apnea, unspecified; Z74.01 Bed confinement status